=== PATIENT | female | born 1965 | race African-American/Black ===

== ENCOUNTER 2018-03-04 07:44 | Day surgery (SDC) | payer OTHER ==
[2018-03-03 13:23] VITALS: BMI 35.2
[2018-03-04] MEDS ORDERED: PROPOFOL 20 ML ONE (08:42)
[2018-03-04] MEDS ORDERED: MIDAZOLAM HCL 2 MG/2 ML SINGLE DOSE VIAL ONE (08:43)
[2018-03-04] MEDS ORDERED: DEXAMETHASONE SOD PHOSPHATE 4 MG/1 ML VIAL ONE (08:47)
[2018-03-04] MEDS ORDERED: LIDOCAINE HCL/PF 2% SDV 5ML VIAL ONE (08:47)
[2018-03-04] MEDS ORDERED: KETOROLAC TROMETHAMINE 30 MG/1 ML VIAL ONE (08:47)
[2018-03-04] MEDS ORDERED: ceFAZolin SODIUM 1 GM VIAL ONE (09:12)
--- NOTE | 2018-03-04 09:16 | HP ---
Satellite [facility] - Chief Complaint Chief Complaint: right knee pain - Past Medical History Allergies/Adverse Reactions: Allergies Allergy/AdvReac Type Severity Reaction Status Date / Time No Known Drug Allergies Allergy Verified 03/04/18 07:58 ...LMP: 04/28/13 ...LMP Comment: 2yrs - Current Medications Current Medications: Home Medications Medication Instructions Recorded Oxycodone HCl/Acetaminophen 1 tab PO Q6H #20 tablet MDD 4 03/04/18 [Percocet 5-325 mg Tablet] Satellite Physical Exam - Physical Examination Vital Signs: Vital Signs Period Temp Pulse Resp BP Sys/Donato Pulse Ox Last 24 Hr 97.8 F-97.8 F 74-74 16-16 138-138/83-83 99 General Appearance: Well Nourished, Well Developed, Alert & Oriented x3 ENT: Clear Lung: Normal air movement Heart: Regular rate & rhythm Extremities: Other (right knee- + swelling, + ttp, decr rom, nvi MRI + mt) Neurological: Intact, Alert, Oriented Satellite Impression/Plan - Impression/Plan Impression: right knee internal derangement Operative Procedure: right knee arthroscopy Date to be Performed: 03/04/18
[2018-03-04] MEDS ORDERED: ceFAZolin SODIUM 1 GM VIAL IVPB ONE (09:40)
[2018-03-04] MEDS ORDERED: BUPIVACAINE HCL/PF (5 MG/ML) 30 ML VIAL IJ ONE (09:42)
[2018-03-04] MEDS ORDERED: LIDOCAINE 1%/EPI 1:100000 (50 ML MULTI DOSE VIAL) INF ONE (09:42)
--- NOTE | 2018-03-04 10:15 | OP ---
Operative Note - Note: Operative Date: 03/04/18 ([facility]) Pre-Operative Diagnosis: right knee internal derangement Operation: right knee arthroscopy with PLM, debridement chondroplasty Post-Operative Diagnosis: Same as Pre-op Surgeon: David Camacho Anesthesiologist/DIGITAL MARKETING CONSULTANT: Von Cruz Anesthesia: General, Local Specimens Removed: shavings Operative Report Dictated: Yes
[2018-03-04] MEDS ORDERED: oxyCODONE HCL 5 MG TABLET PO PRN ×2 (11:30)
[2018-03-04] MEDS ORDERED: LACTATED RINGERS SOLUTION 1,000 ML IV SCH (11:30)
[2018-03-04] MEDS ORDERED: ONDANSETRON 4 MG/2 ML VIAL IVPUSH PRN (11:30)
[2018-03-04 14:23] VITALS: BP 108/70; PULSE 67; TEMP 98
--- NOTE | 2018-03-04 14:37 | OP ---
DATE OF OPERATION: 03/04/2018 PREOPERATIVE DIAGNOSIS: Internal derangement, right knee. POSTOPERATIVE DIAGNOSIS: Internal derangement, right knee. PROCEDURE: Arthroscopy, right knee, with partial lateral meniscectomy and chondroplasty of the trochlea. SURGICAL ATTENDING: David Camacho MD ANESTHESIA: General with LMA. CLOSURE: With 4-0 nylon. COMPLICATIONS: None. CONDITION: To recovery in stable condition. DESCRIPTION OF PROCEDURE: The patient was taken to the operating room on March 04, 2018. General anesthesia with LMA was administered per the anesthesiologist. IV Kefzol was administered prophylactically prior to this case. Right lower extremity was prepped and draped in the usual sterile fashion. Medial and lateral infrapatellar portals were infiltrated with 1% Xylocaine. Both portals were made with a 15 blade followed by a blunt trocar. The arthroscopic trocar was placed through the inferolateral portal and up the suprapatellar pouch. The knee was then inflated with a cocktail of 10 mL 1% lidocaine plus 10 mL 0.5% Marcaine and 20 mL of arthroscopic saline. After 2 minutes allowing the medications to work, the procedure was performed. The undersurface of the patella was visualized to be intact. The trochlea had some grade 2 changes. Any loose cartilage was debrided using the shaver. Medial and lateral gutters were visualized to be clear of any loose bodies. With valgus stress on the knee the medial compartment was entered and the medial meniscus visualized and was found to be intact. Medial femoral condyle was run and found to be intact, as was the medial tibial plateau. At 90 degrees the ACL was visualized and probed and found to be intact. In a [id number] position the lateral compartment was entered. Lateral meniscus was visualized and probed, found to have a tear of its posterior horn. This was debrided back to a smooth, stable meniscal tissue with meniscal biter and arthroscopic shaver. The lateral femoral condyle was run and found to be intact as was the lateral tibial plateau. The knee was irrigated with copious amounts of irrigation. The portals were closed using 4-0 nylon. Prior to closure, 20 mL of 0.5% Marcaine was infused for postoperative analgesia. Sterile pressure dressing was placed over the knee. The patient was awakened from anesthesia and transferred to recovery in stable condition. DAVID CAMACHO M.D. [id number]
[2018-03-04] MEDS ORDERED: BUPIVACAINE HCL/PF 0.5% (5MG/ML) 10 ML VIAL ONE (15:05)
[2018-03-04] MEDS ORDERED: LIDOCAINE 1%/EPI 1:100000 (20 ML MULTI DOSE VIAL) ONE (15:05)
--- NOTE | 2018-03-05 15:32 | PATH ---
Surgical Pathology Report Patient Name: RAFAT VALLES [facility]. Rec. #: [id number] /Age/Gender: 1965 (Age: 52) / F Account: [id number] Location: [facility] SURGICAL Taken: 03/04/2018 Received: 03/04/2018 Reported: 03/05/2018 Physicians: David Camacho M.D. Specimen(s) Received RIGHT KNEE SHAVINGS Clinical History Internal derangement right knee Final Diagnosis KNEE SHAVINGS, RIGHT, ARTHROSCOPY: FRAGMENTS OF FIBROADIPOSE TISSUE AND SYNOVIUM. Electronically Signed Mare Vu M.D. Gross Description Received in formalin, labeled "right knee shavings," is a 3.5 x 3.4 x 0.4 cm. aggregate of castillo-yellow soft tissue fragments. A appliance service representative portion is submitted in one cassette. /03/04/2018 saudi03/04/2018
== END 2018-03-04 14:30 | disposition home or self-care (01) ==
LOC: JASU-SURG 07:44
PROVIDERS: ATTEND Orthopaedic Surgery
PROC: 0SBC4ZZ Excision of Right Knee Joint, Percutaneous Endoscopic Approach (ICD-10-PCS; principal; 2018-03-04 09:00)
DX: M23.351 Other meniscus derangements, posterior horn of lateral meniscus, right knee (principal)
CPT/HCPCS: 88304-TC; 94760; 97116-GP

== ENCOUNTER 2020-09-01 02:09 | Emergency (ER) | payer OTHER ==
[2020-09-01 02:14] VITALS: BP 128/80; PULSE 103; TEMP 99.3; BMI 36.6
== END 2020-09-01 03:01 | disposition home or self-care (01) ==
LOC: FER 02:09
DX: R50.9 Fever, unspecified (principal); R19.7 Diarrhea, unspecified; M79.10 Myalgia, unspecified site
CPT/HCPCS: 87804; 99283-25; C9803; U0003

== ENCOUNTER 2020-11-05 14:04 | Emergency (ER) | payer OTHER ==
[2020-11-05 14:11] VITALS: TEMP 98.7; BMI 38.4
[2020-11-05] MEDS ORDERED: LIDOCAINE 5% TOPICAL PATCH TP ONE (14:36)
[2020-11-05] MEDS ORDERED: diazePAM 2 MG TABLET PO ONE (14:36)
[2020-11-05] MEDS ORDERED: ACETAMINOPHEN 325 MG TABLET (FP) PO ONE (14:36)
[2020-11-05] MEDS ORDERED: LIDOCAINE 5% TOPICAL PATCH ONE (14:42)
[2020-11-05] MEDS ORDERED: diazePAM 2 MG TABLET ONE (14:42)
[2020-11-05] MEDS ORDERED: ACETAMINOPHEN 325 MG TABLET (FP) ONE (14:42)
[2020-11-05 15:52] VITALS: BP 168/112; PULSE 85
[2020-11-05] MEDS ORDERED: LIDOCAINE PATCH REMOVAL MC ONE (22:00)
== END 2020-11-05 16:26 | disposition home or self-care (01) ==
LOC: JER 14:04
DX: M54.2 Cervicalgia (principal)
CPT/HCPCS: 72040-TC; 72100-TC-FY; 99285-25